=== PATIENT | male | born 1990 | race Two or more races ===

== ENCOUNTER 2022-04-02 18:48 | Emergency (ER) | payer SELFPAY ==
[~2022-04-02] VITALS: Ht 170.2 cm; Wt 68.0 kg
[2022-04-02 18:52] VITALS: BP 134/87
--- NOTE | 2022-04-02 20:07 | NUR ---
PT DECIDED THAT HE WILL NO LONGER WAIT AND LEAVE. PT WAS NOT SEEN BY THE MD.
== END 2022-04-02 20:09 | disposition left against medical advice (07) ==
LOC: ER 19:09
DX: Z53.21 Procedure and treatment not carried out due to patient leaving prior to being seen by health care provider (principal)